=== PATIENT | male | born 1975 | race Caucasian/White ===

== ENCOUNTER 2018-02-21 18:34 | Emergency (ER) | payer OTHER ==
[~2018-02-21] VITALS: Ht 177.8 cm; Wt 81.7 kg
[2018-02-21] MEDS ORDERED: ROBAXIN500 MG PO (19:49)
[2018-02-21 20:10] VITALS: BP 122/68
== END 2018-02-21 20:10 | disposition home or self-care (01) ==
LOC: M.ERS 18:34
DX: S06.0X0A Concussion without loss of consciousness, initial encounter (principal); S16.1XXA Strain of muscle, fascia and tendon at neck level, initial encounter; V43.92XA Unspecified car occupant injured in collision with other type car in traffic accident, initial encounter; Y93.89 Activity, other specified; Y92.89 Other specified places as the place of occurrence of the external cause; Y99.8 Other external cause status